=== PATIENT | male | born 1990 | race African-American/Black ===

== ENCOUNTER 2022-02-14 01:46 | Emergency (ER) | payer MEDICAID ==
[~2022-02-14] VITALS: Ht 177.8 cm; Wt 99.8 kg
[2022-02-14] MEDS ORDERED: cefTRIAXone SOD 1,000 MG VL IM ONE (02:30)
[2022-02-14] MEDS ORDERED: AMOX250C3 PO (02:44)
[2022-02-14 04:05] VITALS: BP 140/91
== END 2022-02-14 04:11 | disposition home or self-care (01) ==
LOC: ER 01:46
DX: J03.90 Acute tonsillitis, unspecified (principal); F17.210 Nicotine dependence, cigarettes, uncomplicated
CPT/HCPCS: 96372; 99283; J0696